=== PATIENT | male | born 1950 | race Caucasian/White ===

== ENCOUNTER 2023-01-26 15:39 | Outpatient (CLI) | payer MEDICARE, MEDICAID ==
[~2023-01-26] VITALS: Ht 162.6 cm; Wt 60.8 kg
[2023-01-26] MEDS ORDERED: ACET-11 PO (16:56)
[2023-01-26] MEDS ORDERED: ALBU18HF2 INH (16:56)
[2023-01-26] MEDS ORDERED: LISI1TAB46 PO (16:56)
[2023-01-26] MEDS ORDERED: TMSL.4C PO (16:56)
[2023-01-26] MEDS ORDERED: BUDE10.2 IH (16:56)
[2023-01-26] MEDS ORDERED: IPRA3AMP31 IH (16:56)
== END 2023-01-26 16:25 | disposition home or self-care (01) ==
LOC: PREOP 15:39
PROVIDERS: ATTEND Surgery
DX: Z01.818 Encounter for other preprocedural examination (principal)

== ENCOUNTER 2023-01-28 06:56 | Day surgery (SDC) | payer MEDICARE, MEDICAID ==
[~2023-01-28] VITALS: Ht 162.6 cm; Wt 60.8 kg
[2023-01-28] VITALS (7 sets, daily range): BP systolic 100–137; BP diastolic 54–62
[~2023-01-28 06:56] MED LIST: ACET-11 PO; ALBU18HF2 INH; BUDE10.2 IH; IPRA3AMP31 IH; LISI1TAB46 PO; TMSL.4C PO
[2023-01-28] MEDS ORDERED: HEParin (CENTRAL IV FLUSH) 500 UNIT/5 ML SYR ONE (07:06)
[2023-01-28] MEDS ORDERED: LIDOCAINE 1% w/EPI 1:100,000 20 ML VIAL ONE (07:06)
[2023-01-28] MEDS ORDERED: 0.9% SODIUM CHLORIDE PF INJ 20 ML VIAL ONE (07:06)
[2023-01-28] MEDS ORDERED: PROPOFOL INJECTION 50 ML IV ONE (07:08)
[2023-01-28] MEDS ORDERED: NS (IVPB) 50 ML 50 ML ONE (08:08)
[2023-01-28] MEDS ORDERED: ceFAZolin INJECTION 2,000 MG ONE (08:08)
--- NOTE | 2023-01-28 08:12 | Progress Note-Pre Operative ---
Pre-Operative Progress Note Date H&P Reviewed: Jan 28, 2023 Time H&P Reviewed: 08:12 History & Physical: H&P Reviewed, Patient Examed, No changes noted Pre-Operative Diagnosis: bladder cancer KHUSHBU HOLLINGSWORTH DO Jan 28, 2023 08:12
[2023-01-28] MEDS ORDERED: ceFAZolin INJECTION 2,000 MG in NS (IVPB) 50 ML 50 ML IV ONE (08:15)
[2023-01-28] MEDS ORDERED: LACTATED RINGERS 1,000 ML IV PRN (08:15)
--- NOTE | 2023-01-28 10:13 | Anesthesia-General Post-Op ---
MAC Patient Condition Mental Status/LOC: Same as Preop Cardiovascular: Satisfactory Nausea/Vomiting: Absent Respiratory: Satisfactory Pain: Controlled Complications: Absent Post Op Complications Complications None Follow Up Care/Instructions Patient Instructions None needed. Anesthesiology Discharge Order Discharge Order Patient is doing well, no complaints, stable vital signs, no apparent adverse anesthesia problems. No complications reported per nursing. MEDARDO SANDERS CRNA Jan 28, 2023 10:13
[2023-01-28] MEDS ORDERED: morphine INJ 10 MG/ML 1ML (SYR OR VIAL) IVP ONE (10:15)
--- NOTE | 2023-01-28 10:21 | Discharge Inst-Simple/Standard ---
Discharge Inst-Standard Patient Instructions/Follow Up Plan of Care/Instructions/FU: 2 weeks Mary Activity as Tolerated: No Discharge Diet: Regular Diet Other Inst to Patient Follow up Appt: Make appointment for 2 week. Instructions: No lifting greater than 10 pounds. No strenuous activity. May shower in 24 hours, no tub bath or soaking. Use incentive spirometer at home as directed. No Smoking Skin/Wound Care: You have special glue over your incision that will fall off on it's own. Ice pack on 15 min and off 30 min and repeat for first 48 hours. This reduces swelling and discomfort. Symptoms to Report: Appetite Changes, Extremity Discoloration, Numbness/Tingling, Swelling Increased, Bleeding Excessive, Eyesight Changes, Pain Increased, Urine Color Change, Constipation(Persistent), Fever over 101 degree F, Pain/Pressure in chest, Urinating Difficulty, Cough Up/Vomit Blood, Heart Beat Irreg/Pounding, Pain/Pressure in jaw, Vaginal Bleeding Increase, Cramps in feet or legs, Lightheadedness, Pain/Pressure in shoulder, Diarrhea(Persistent), Memory Changes Suddenly, Questions/Concerns, Weight gain consecutive days, Dizziness/Fainting, Nausea/Vomiting, Shortness of Breath, Weight gain over 2 pounds If questions or concerns contact your physician Or seek help at emergency department. KHUSHBU HOLLINGSWORTH DO Jan 28, 2023 10:21
--- NOTE | 2023-01-28 10:22 | Progress Note-Post Operative ---
Post-Operative Progess Note Surgeon (s)/Safety Intern (s) Surgeon KHUSHBU HOLLINGSWORTH DO Safety Intern: na Pre-Operative Diagnosis bladder cancer Post-Operative Diagnosis same Procedure & Operative Findings Date of Procedure 01/28/23 Procedure Performed/Findings PROCEDURE: Right internal jugular port placement using ultrasound guidance. COMPLICATIONS: None. INDICATIONS: The patient is a 72 year old male with bladder cancer. Patient understands the risks and benefits of port placement and wished to proceed with the procedure. Consent was signed on the chart. PROCEDURE: The patient was taken to the operating suite, was prepped and draped in the sterile fashion. A surgical pause was performed. Ultrasound was used to locate the internal jugular vein. Once located anesthetic was infiltrated above it. Using micro-access kit, the right internal vein was accessed. Dark nonpulsatile blood was withdrawn. The wire was inserted. Fluoroscopy assured proper placement. The needle was removed. The micro-access dilator was advanced over the wire and the wire was removed. The regular wire was inserted and fluoroscopy assured proper placement. The wire was then secured. Local anesthetic was used to anesthetize from the neck for tunneling down to the right chest and for pocket creation. A 15 blade scalpel was used to make an incision over the right chest. Cautery was used to dissect down to the pectoral fascia. A pocket was created with blunt dissection. The dilator sheath was then advanced over the wire under fluoroscopy and the dilator and wire were removed. The Gro[place]ong catheter was inserted through the sheath and the sheath was then removed. The Gro[place]ong wire was removed. The catheter was then tunneled to the right chest pocket. Fluoroscopy was used to cut to length and this was then attached to the port which was then placed within the pocket. The port was then accessed without difficulty. It was then flushed with saline and then heparin. The subcutaneous tissues were then reapproximated using 3-0 Vicryl. The areas were then washed and dried. Skin Affix was placed over incision. The insertion point of the neck Skin Affix was placed over the incision. The patient tolerated the procedure well without complication and was taken to recovery room in stable condition. Chest x-ray is pending. Anesthesia Type mac c local Estimated Blood Loss Estimated blood loss (mL): minimal Specimens/Packing Specimens Removed KHUSHBU Freedman DO Jan 28, 2023 10:22
[2023-01-28] MEDS: ONDANSETRON 4 MG/2 ML (SDV) Z0FRAN IVP PRN ×2 (10:30→10:40)
--- NOTE | 2023-01-28 10:37 | Diagnostic Imaging Report ---
INDICATION: Postop FINDINGS: Right IJ port catheter tip at the lower SVC in good position. There is no pneumothorax. The heart size upper limits. There may be some mild central venous congestion and mild interstitial edema versus scattered zones of partial atelectasis. Tiny right pleural effusion suspected. IMPRESSION: Catheter placed in good position with no pneumothorax. Equivocal findings for tiny right pleural effusion and some mild congestion. Dictated by: Dictated on workstation # [id number]
--- NOTE | 2023-01-28 13:29 | Diagnostic Imaging Report ---
EXAMINATION: Chest fluoroscopy TECHNIQUE: Intraoperative fluoroscopy of the chest during Port-A-Cath placement. HISTORY: PORT PLACEMENT IN OR COMPARISON: None available. FINDINGS/ impression: Single fluoroscopic view of the chest demonstrating right-sided Port-A-Cath tip projecting within the SVC. Dose: 0.78 mGy Fluoroscopy time: 11.1 seconds. Dictated by: Dictated on workstation # [id number]
== END 2023-01-28 11:20 | disposition home or self-care (01) ==
LOC: SDC 06:56
PROVIDERS: ATTEND Surgery
DX: C67.9 Malignant neoplasm of bladder, unspecified (principal); F17.210 Nicotine dependence, cigarettes, uncomplicated
CPT/HCPCS: 36561; 71045; 76000; 87081; C1788